=== PATIENT | female | born 1985 | race Caucasian/White ===

== ENCOUNTER 2016-12-26 18:06 | Emergency (ER) | payer OTHER ==
[2016-12-26] MEDS ORDERED: 0.9 % SODIUM CHLORIDE 1,000 ML IV ONE (18:39)
[2016-12-26] MEDS: MECLIZINE HCL 25 MG TABLET PO ONE (18:45)
[2016-12-26] MEDS: 0.9 % SODIUM CHLORIDE 1,000 ML IV SCH (18:46)
[2016-12-26 18:58] LABS: BASOPHILS % 0.8 (0.0-1.5); EOSINOPHILS % 1.7 % (0.0-6.8); MEAN CORPUSCULAR HEMOGLOBIN 31.5 pg (28.0-34.0); MEAN CORPUSCULAR VOLUME 92.7 fl (80.0-100.0); MONOCYTES % 3.9 % (0.0-11.0); NEUTROPHILS # 3.6 # k/uL (1.4-7.7)
[2016-12-26 19:10] LABS: eGFR (African) > 60; eGFR (Non-African) > 60
--- NOTE | 2016-12-26 19:28 | Diagnostic Imaging Report ---
SHON VEGA [facility] [id number] [facility] [address] [place], [place]. [address] Report Submission Date: Dec 26, 2016 7:23:27 PM CDT Patient Study Name: CARMELLA BARNES Date: Dec 26, 2016 7:06:21 PM CDT Modality Type: CT\SR Gender: F Description: CT MAXILLOFACIAL W/O D : 81 Institution: [facility] Physician: SHON VEGA CT facial bones without contrast. History: VERTIGO, DIZZINESS AND OFF BALANCE TODAY Technique: Transaxial computed tomography images of the facial bones were obtained without the use of intravenous contrast according to standard protocol. Findings: The orbits are intact. There is no evidence of sinus fracture. The nasal bones are without fracture. The nasal septum is deviated to the left. The maxilla and mandible are intact. There is no evidence of some significant paranasal sinuses are free of fluid. The globes are normal. The mastoid air cells are free of fluid. Impression: 1. No evidence of acute fracture. 2. No sinus disease. Electronically signed on Dec 26, 2016 7:23:27 PM CDT by: Alexis Hernandez [facility]
--- NOTE | 2016-12-26 20:01 | ED Physician Documentation ---
Dizziness - HISTORIAN Historian: patient - HPI Stated Complaint: dizzy Chief Complaint: Dizziness Additional Information: started dizzy antonio am Timing: sudden onset Duration: constant Last known Well Date: 12/25/16 Last Known Well Time: 23:00 Last known Well Code/Unknown Code: Unknown Severity: mild Associated Symptoms: vestibular Decreased Ability to Stand/ Walk: off balance. denies: weak, difficult, cannot walk, cannot stand, falling, walks w/o assistance, cane, walker, unable to walk , bed-ridden, unable to sit Usually: walks w/o assistance Worsened By: changing position Further Comments: no - ROS CONST: none EYES/ENT: none GI/: none LNMP: denies: MS/SKIN/LYMPH: none NEURO/PSYCH: none CVS/RESP: none - PAST HX Past History: none Cardiac Disease: none Surgeries/Procedures: none Immunizations: referred to PCP Allergies/Adverse Reactions: Allergies Allergy/AdvReac Type Severity Reaction Status Date / Time Penicillins Allergy Verified 12/26/16 18:22 Home Medications: Ambulatory Orders Medication Instructions Recorded NK [NK] 06/11/12 - SOCIAL HX Smoking History: cigarettes Alcohol Use: none Drug Use: none - FAMILY HX Family History: none - VITAL SIGNS Vital Signs: Vital Signs Temp Pulse Resp BP Pulse Ox 97.2 F L 84 12 112/68 99 12/26/16 18:10 12/26/16 18:20 12/26/16 18:10 12/26/16 18:20 12/26/16 18:10 - REVIEWED ASSESSMENTS Nursing Assessment Reviewed: Yes Vitals Reviewed: Yes Progress - Results/Orders Results/Orders: ct facial bones, ua, hcg, cmp, cbc ordered - Progress Progress: pt improved, much less dizzy with tx in er Critical Care Note - Critical Care Note Total Time (mins): 0 ED Results Lab/Radiology - Lab Results Lab Results: Lab Results 12/26/16 12/26/16 18:45 18:45 WBC 6.40 K/ul K/ul (4.00-12.00) RBC 4.74 M/ul M/ul (3.90-5.20) Hgb 14.9 g/dL g/dL (12.0-16.0) Hct 44.0 % % (34.5-46.5) MCV 92.7 fl fl (80.0-100.0) MCH 31.5 pg pg (28.0-34.0) MCHC 34.0 g/dL g/dL (30.0-36.0) RDW 12.0 % % (11.3-14.3) Plt Count 194 K/mm3 K/mm3 (130-400) Neut % (Auto) 56.3 % % (39.0-79.0) Lymph % (Auto) 34.5 % % (16.0-50.0) Mingo % (Auto) 3.9 % % (0.0-11.0) Eos % (Auto) 1.7 % % (0.0-6.8) Baso % (Auto) 0.8 (0.0-1.5) Neut # (Auto) 3.6 # k/uL # k/uL (1.4-7.7) Lymph # (Auto) 2.2 # k/uL # k/uL (0.6-4.0) Mingo # (Auto) 0.2 # k/uL # k/uL (0.0-0.9) Eos # (Auto) 0.1 # k/uL # k/uL (0.0-0.6) Baso # (Auto) 0.0 # k/uL # k/uL (0.0-0.5) Reactive Lymphs % 2.8 % % (0.0-5.0) Reactive Lymphs # 0.2 # k/uL # k/uL (0.0-0.8) Sodium 140 mmol/L mmol/L (136-145) Potassium 3.5 mmol/L mmol/L (3.5-5.0) Chloride 104 mmol/L mmol/L (98-110) Carbon Dioxide 29 mmol/L mmol/L (20-32) BUN 7 mg/dL L mg/dL (10-26) Creatinine 0.6 mg/dL mg/dL (0.4-1.5) Estimated Creat Clear 140 Est GFR ( Amer) > 60 (60 - ) Est GFR (Non-Af Amer) > 60 (60 - ) Glucose 107 mg/dL H mg/dL (70-99) Calcium 9.7 mg/dL mg/dL (8.5-10.5) Total Bilirubin 0.5 mg/dL mg/dL (0.2-1.2) AST 17 U/L U/L (0-41) ALT 15 U/L U/L (0-45) Alkaline Phosphatase 65 U/L U/L (46-116) Total Protein 7.3 g/dL g/dL (6.0-8.5) Albumin 5.1 g/dL g/dL (3.0-5.5) - Radiology Radiology Impressions: ct maxillofacial area neg - Orders Orders: ED Orders Category Date Time Status Place IV Lock 1T Care 12/26/16 18:[address] MAXILLOFACIAL W/O DYE Routine Exams 12/26/16 Completed CBC/PLATELET/DIFF Routine Lab 12/26/16 18:45 Completed CMP Routine Lab 12/26/16 18:45 Completed HCG [URINE HCG] Routine Lab 12/26/16 18:51 Ordered URINALYSIS Routine Lab 12/26/16 18:23 Ordered 0.9 % Sodium Chloride [Normal Saline] 1,000 ml Med 12/26/16 18:30 Ordered IV .Q1H Meclizine HCl [Antivert] Med 12/26/16 18:23 Discontinued 25 mg PO NOW ONE Dizziness Physical Exam - Physical Exam General Appearance: mild distress EENT: eye inspection normal, ENT inspection normal, pharynx normal, no signs of dehydration, SEKOU, no nystagmus, TM's nml Neck: normal inspection, thyroid normal, supple Respiratory: no respiratory distress, breath sounds nml, chest non-tender CVS: reg rate & rhythm, heart sounds normal, equal pulses Abdomen: soft, no organomegaly, normal bowel sounds, no abdominal bruit, no distension, non-tender Skin: warm/dry, normal color Neuro: nml orientation, nml speech, nml cognition, mood/affect nml Extremities: non-tender, normal range of motion, no evidence of injury, no edema Cranial: nml as tested, no evidence of acute CVA Cerebellar: nml as tested Sensorimotor: motor nml, sensation nml Discharge Clincal Impression: Vertigo Referrals: Primary Doctor,No [Primary Care Provider] - 2 Days Home Medications: Ambulatory Orders NK [NK] 06/11/12 Comments: pt. discharged in improved condition with script for meclizine 25 mg 1 p.o. qid prn vertigo Condition: Stable Disposition: 01 HOME, SELF-CARE Decision to Admit: NO Decision Time: 19:58
[2016-12-26 20:19] VITALS: BP 116/62
== END 2016-12-26 20:05 | disposition home or self-care (01) ==
LOC: ED 18:06
DX: R42 Dizziness and giddiness (principal)
CPT/HCPCS: 70486; 80053; 85025; J7030; 96360; 99283; S1016